=== PATIENT | male | born 1950 | race Caucasian/White ===

== ENCOUNTER 2017-06-09 17:11 | Emergency (ER) | payer OTHER ==
[~2017-06-09] VITALS: Ht 188 cm; Wt 113.4 kg
[2017-06-09] MEDS ORDERED: AVAPRO150 MG (17:19)
[2017-06-09] MEDS ORDERED: ZIAC 10/6.25 MG1 TAB (17:19)
[2017-06-09] MEDS ORDERED: SYNTHROID50 MCG (17:20)
[2017-06-09] MEDS ORDERED: GLUCOPHAGE XR500 MG (17:20)
[2017-06-09] MEDS ORDERED: UROXATRAL10 MG (17:21)
== END 2017-06-09 21:56 | disposition home or self-care (01) ==
LOC: ER 17:11
DX: S70.01XA Contusion of right hip, initial encounter (principal); W18.39XA Other fall on same level, initial encounter; Y93.89 Activity, other specified; Y92.512 Supermarket, store or market as the place of occurrence of the external cause; Y99.8 Other external cause status

== ENCOUNTER 2018-02-19 16:39 | Outpatient (CLI) | payer OTHER ==
[~2018-02-19 16:39] MED LIST: AVAPRO150 MG; GLUCOPHAGE XR500 MG; SYNTHROID50 MCG; UROXATRAL10 MG; VOLTAREN-XR100 MG PO; ZIAC 10/6.25 MG1 TAB
== END 2018-02-19 16:45 | disposition home or self-care (01) ==
LOC: RAD 16:39
DX: M17.11 Unilateral primary osteoarthritis, right knee (principal)